=== PATIENT | male | born 1970 | race Hispanic/Latino ===

== ENCOUNTER 2024-09-04 02:21 | Observation (INO) | payer SELFPAY ==
[~2024-09-04] VITALS: Ht 170.2 cm; Wt 104.3 kg
--- NOTE | 2024-09-04 03:00 | NUR ---
PATIENT TO CT
[2024-09-04 03:09] LABS: BASOPHILS # (AUTO) 0.08 K/uL (0.00-0.20); BASOPHILS % (AUTO) 1.7 % (0.0-5.0); EOSINOPHILS # (AUTO) 0.14 K/uL (0.00-0.70); HEMATOCRIT 27.1 % (42-54); IMMATURE GRANULOCYTE ABSOLUTE 0.02 K/uL (0-1); LYMPHOCYTES # (AUTO) 1.5 K/uL (1.0-4.8); LYMPHOCYTES % (AUTO) 31.8 % (21.0-51.0); MEAN CORPUSCULAR HEMOGLOBIN 32.3 pg (27.0-33.0); MEAN CORPUSCULAR HGB CONC 31.7 g/dL (32.0-36.0); MEAN CORPUSCULAR VOLUME 101.9 fL (79-99); MONOCYTES # (AUTO) 0.4 K/uL (0.1-1.0); NEUTROPHILS # (AUTO) 2.6 K/uL (1.8-7.7); NEUTROPHILS % (AUTO) 55.1 % (40.0-77.0); PLATELET COUNT (AUTO) 200 K/uL (130-400); RED BLOOD CELL COUNT(AUTO) 2.66 MIL/uL (4.50-6.20); RED CELL DISTRIBUTION WIDTH 17.2 % (11.0-15.5); WHITE BLOOD COUNT (AUTO) 4.7 K/uL (4.8-10.8)
[2024-09-04 03:18] LABS: CREATININE 0.7 mg/dL (0.5-1.3); POTASSIUM 3.1 mmol/L (3.5-5.1)
[2024-09-04 03:20] LABS: APPEARANCE,URINE CLEAR (CLEAR); BILIRUBIN,URINE NEGATIVE (NEGATIVE); COLOR,URINE LIGHT-YELLOW (YELLOW); GLUCOSE, URINE (UA) NEGATIVE (NEGATIVE); KETONES,URINE NEGATIVE (NEGATIVE); LEUKOCYTE ESTERASE ,URINE NEGATIVE Leu/uL (NEGATIVE); NITRATE,URINE NEGATIVE (NEGATIVE); OCCULT BLOOD,URINE NEGATIVE (NEGATIVE); PROTEIN,URINE NEGATIVE (NEGATIVE); UROBILINOGEN,URINE 0.2 mg/dL (0.2-1.0)
[2024-09-04 03:21] LABS: ADD UA MICROSCOPIC NO
[2024-09-04 03:24] LABS: ALBUMIN 1.6 g/dL (3.5-5.0); BILIRUBIN,DIRECT 0.9 mg/dL (0.0-0.3); BILIRUBIN,TOTAL 1.3 mg/dL (0.2-1.0)
--- NOTE | 2024-09-04 03:37 | ERN ---
General Chief Complaint: Mechanical Fall Stated Complaint: UNWITNESSED FALL Time Seen by MD: 03:10 Source: police History of Present Illness Initial Comments This is a 54-year-old male who was found down by a passerby who called the police who then called photoengraving helper to bring the patient to the emergency room. Patient does admit to drinking but can not remember the events that led to him being found on the street. He states that he does have a problem with his liver that is all we know right now. Timing/Duration: unsure Severity: moderate Past Medical History Past Medical History: Liver Disease Past Surgical History: None Social History Social History: ETOH, Other (Unknown) ROS Dictation The patient stated that he does not have any medical problems. He would just like to sleep in the ED tonight and then walk home tomorrow morning where he stays with his mother. Nurses Notes Reviewed: Yes (Currently patient is soon to somnolent to do a complete review of systems.) Physical Exam General Appearance: (+) no apparent distress Orientation: (+) alert Orientation Comment Patient not clear where he is located he does know he is in an emergency room. Head/Face Trauma: No Eye: bilateral eye normal inspection, bilateral eye PERRL, bilateral eye EOMI Ear, Nose, Throat: (+) hearing grossly normal, (+) normal ENT inspection, (+) moist mucous membraine Neck: (+) normal inspection, (+) supple, (+) full range of motion, (+) no JVD Respiratory: (+) chest non-tender, (+) lungs clear, (+) well ventilated Heart: (+) regular Vascular: (+) no edema, (+) normal peripheral pulse, (+) no JVD, (+) abdominal aorta, (+) abnormal peripheral pulse, (+) carotid bruit, (+) edema, (+) JVD, (+) varicose vein, (+) other documentation Vascular Comment Patient has bilateral pretibial edema cause unknown at this point Gastrointestinal: (+) soft, (+) non-tender, (+) bowel sound present Extremities: (+) normal range of motion, (+) non-tender, (+) normal inspection Neurologic/Psychiatric: (+) normal speech, (+) no motor defecits Results Laboratory and Microbiology Lab and Micro Result Laboratory Tests Test 3/3/25 02:40 09/04/24 03:00 Urine Color LIGHT-YELLOW (YELLOW) Urine Appearance CLEAR (CLEAR) Urine pH 6.0 (5.0-8.0) Urine Specific [place] 1.004 (1.001-1.031) Urine Protein NEGATIVE mg/dL (NEGATIVE) Urine Glucose (UA) NEGATIVE mg/dL (NEGATIVE) Urine Ketones NEGATIVE mg/dL (NEGATIVE) Urine Occult Blood NEGATIVE (NEGATIVE) Urine Nitrate NEGATIVE (NEGATIVE) Urine Bilirubin NEGATIVE mg/dL (NEGATIVE) Urine Urobilinogen 0.2 mg/dL (0.2-1.0) Urine Leukocyte Esterase NEGATIVE Delia/uL White Blood Count 4.7 K/uL (4.8-10.8) L Red Blood Count 2.66 MIL/uL (4.50-6.20) L Hemoglobin 8.6 g/dL (14.0-18.0) L Hematocrit 27.1 % (42-54) L Mean Corpuscular Volume 101.9 fL (79-99) H Mean Corpuscular Hemoglobin 32.3 pg (27.0-33.0) Mean Corpuscular Hemoglobin Concent 31.7 g/dL (32.0-36.0) L Red Cell Distribution Width 17.2 % (11.0-15.5) H Platelet Count 200 K/uL (130-400) Mean Platelet Volume 8.9 fL (7.5-10.5) Immature Granulocyte % (Auto) 0.4 % (0-1) Neutrophils (%) (Auto) 55.1 % (40.0-77.0) Lymphocytes (%) (Auto) 31.8 % (21.0-51.0) Monocytes (%) (Auto) 8.0 % (3.0-13.0) Eosinophils (%) (Auto) 3.0 % (0.0-8.0) Basophils (%) (Auto) 1.7 % (0.0-5.0) Neutrophils # (Auto) 2.6 K/uL (1.8-7.7) Lymphocytes # (Auto) 1.5 K/uL (1.0-4.8) Monocytes # (Auto) 0.4 K/uL (0.1-1.0) Eosinophils # (Auto) 0.14 K/uL (0.00-0.70) Basophils # (Auto) 0.08 K/uL (0.00-0.20) Absolute Immature Granulocyte (auto 0.02 K/uL (0-1) Nucleated Red Blood Cells 0.0 % (0.0-0.19) Sodium Level 132 mmol/L (136-145) L Potassium Level 3.1 mmol/L (3.5-5.1) L Chloride Level 98 mmol/L (101-111) L Carbon Dioxide Level 26 mmol/L (21-32) Blood Urea Nitrogen 4 mg/dL (7-18) L Creatinine 0.7 mg/dL (0.5-1.3) Glomerular Filtration Rate Calc 111 mL/min (>90) Random Glucose 83 mg/dL (70-105) Total Calcium 7.9 mg/dL (8.5-10.1) L Total Bilirubin 1.3 mg/dL (0.2-1.0) H Direct Bilirubin 0.9 mg/dL (0.0-0.3) H Aspartate Amino Transf (AST/SGOT) 63 U/L (10-37) H Alanine Aminotransferase (ALT/SGPT) 24 U/L (12-78) Alkaline Phosphatase 105 U/L (50-136) Total Protein 9.0 g/dL (6.0-8.3) H Albumin 1.6 g/dL (3.5-5.0) L Labs Reviewed?: Yes EKG/XRAY/US/CT/MRI CT Scan Comment CT scans negative for any intracerebral hemorrhage masses or strokes. CT scan of the patient's neck is negative as well for fractures or dislocations. MDM Given the patient's decreased mental status and the fact that he has severe metabolic derangements and evidence of liver disease as well as a microcytic anemia from his alcohol abuse I asked him if he would like to stay in the hospital to let us fix all of those problems and he was agreeable. I have ca lled the hospitalist and they agreed to take him on their service. ED Course Orders Procedure Category Date Status Time Cbc With Differential LAB 09/04/24 Complete 02:53 Basic Metabolic Panel LAB 09/04/24 Complete 02:53 Hepatic Function Panel LAB 09/04/24 Complete 02:53 Ct Cervical Spine W/O CT 09/04/24 Taken Contrast 02:53 Ct Head/Brain W/O CT 09/04/24 Taken Contrast 02:53 Urinalysis Profile LAB 09/04/24 Complete 02:54 Drug Screen Urine LAB 09/04/24 Logged 03:41 Alcohol, Blood LAB 09/04/24 Logged 03:41 Vital Signs Date Time Temp Pulse Resp B/P (MAP) Pulse Ox O2 Delivery O2 Flow Rate FiO2 09/04/24 02:30 97.0 105 17 128/92 93 Room Air 0 09/04/24 02:22 97.0 105 17 128/92 93 Room Air* 0 21 DX & DISP Disposition: Inpatient Departure Impression: Primary Impression: Alcohol abuse Additional Impressions: Liver disease due to alcohol, Macrocytic anemia Condition: Stable Referrals: SELF,REFERRAL (PCP) MIESHA BYERS MD Sep 04, 2024 03:37
[2024-09-04 04:22] LABS: AMPHET/METH SCREEN,URINE NEGATIVE (NEGATIVE); BARBITURATE SCREEN, URINE NEGATIVE (NEGATIVE); BENZODIAZEPINES SCREEN,URINE NEGATIVE (NEGATIVE); CANNABINOID SCREEN,URINE POSITIVE (NEGATIVE); COCAINE SCREEN,URINE POSITIVE (NEGATIVE); OPIATE SCREEN,URINE NEGATIVE (NEGATIVE); PHENCYCLIDINE SCREEN,URINE NEGATIVE (NEGATIVE)
[2024-09-04] MEDS ORDERED: ondanSETRON 4MG INJ IVP PRN (04:30)
[2024-09-04] MEDS ORDERED: acetaMINOPHEN 650 MG SUPPOSITORY RC PRN (04:30)
[2024-09-04] MEDS ORDERED: LACTULOSE 20 GM/30 ML UDCUP PO PRN (04:30)
[2024-09-04] MEDS ORDERED: PoTASSium chl 10% ELIXIR 20MEQ 20 MEQ/15 ML UDCUP PO PRN (04:30)
[2024-09-04] MEDS ORDERED: hydrALAZine 20MG/ML VIAL IV PRN (04:30)
[2024-09-04] MEDS ORDERED: DEXTROSE 50%-WATER 50 ML DISP.SYRIN IV PRN (04:30)
[2024-09-04] MEDS ORDERED: doCUSate SODIUM 100 MG CAP PO PRN (04:30)
[2024-09-04] MEDS ORDERED: TEMAZepam 15 MG CAPSULE PO PRN (04:30)
[2024-09-04] MEDS ORDERED: MAGNESIUM 2GM PREMIX 50ML 50 ML IV PRN (04:30)
[2024-09-04] MEDS ORDERED: GLUCAGON 1MG KIT 1 MG ML IM PRN (04:30)
[2024-09-04] MEDS ORDERED: acetaMINOPHEN 325 MG TAB PO PRN (04:30)
[2024-09-04] MEDS ORDERED: PoTASSium chloRIDE 20MEQ/100ML 100 ML IV PRN (04:30)
[2024-09-04] MEDS ORDERED: PoTASSium chloRIDE 20MEQ ER 20 MEQ ERTAB PO PRN (04:30)
--- NOTE | 2024-09-04 04:30 | HP ---
[facility] HISTORY AND PHYSICAL Date of Service: Sep 04, 2024 Time of Service: 04:30 Attending/supervising physicians: Dr. Maria and Dr. Nicole Castrejon HISTORY OF PRESENT ILLNESS: Mr. Ortiz is a 54-year-old male with hx of liver problems who was found on the ground by bystanders who called the police who then called brush maker machine to bring the patient to the emergency room. Patient admitted to drinking but can not remember the events that led to him being found on the street. The patient denied chest pain, shortness of breath, any injury, any other pain, problem or concern. ED physician request patient be admitted with the diagnosis of alcohol abuse, liver disease due alcohol, Microcytic anemia. The patient was found to be positive for cocaine, marijuana, and serum alcohol level was 310. Remarkable lab results: Hemoglobin 8.6, hematocrit 27.1, RBCs 2.66, sodium 132, potassium 3.1, chloride 98, total calcium 7.9, total bilirubin 1.3, direct bilirubin 1.9, AST 63, total protein 9.0, albumin 1.6. I assessed the patient at bedside. Patient was awake, alert, in no distress. The patient's speech is clear and no neuro deficits noted. The patient was sleeping but wakes up to voice. Patient reports that he is hungry. Denies any chest pain, shortness of breath, dizziness, any physical injury, any other pain, problem or concern. I informed the patient of labs, diagnostics, and plan of care. The patient verbalized understanding and is in agreement with the plan. Plan and assessment are listed below. REVIEW OF SYSTEMS 12-point ROS reviewed with patient. All pertinent positives mentioned above. Otherwise negative, noncontributory, non-pertinent. PAST MEDICAL HISTORY: As mentioned above. PAST SURGICAL HISTORY: None PAST SOCIAL HISTORY: + ETOH FAMILY HISTORY: Noncontributory Coded Allergies: No Known Drug Allergies (Unverified Allergy, Unknown, 09/04/24) PHYSICAL EXAM GENERAL APPEARANCE: The patient is awake, alert, and oriented, in no acute cardiopulmonary distress. NEUROLOGICAL: Cranial nerves II-XII grossly intact. Motor is 5/5 in bilateral upper and lower extremities proximal to distal. No sensory deficits. HEENT: Face is symmetric. Pupils are equal and reactive. Extraocular movements are intact. NECK: Supple. No JVD. No thyromegaly. No submental, submandibular, pre- /postauricular, occipital or supraclavicular lymphadenopathy. CHEST: Normal chest expansion. No Telemetry. LUNGS: Absence of any rales, rhonchi or any wheezing. CARDIOVASCULAR: Regular. S1 and S2 normal. No appreciable rubs, murmurs or gallops. ABDOMEN: Soft, nontender, and nondistended. There is no rebound, voluntary guarding, or rigidity. : Deferred. No [place]. EXTREMITIES: Non-edematous and not cyanotic. No clubbing. Good capillary refill. SKIN: No skin breakdown. Vital Sign (Last 24 Hours) 09/04/24 09/04/24 02:22 02:30 Temp 97.0 Pulse 105 Resp 17 B/P (MAP) 128/92 Pulse Ox 93 O2 Delivery Room Air O2 Flow Rate 0 FiO2 21 LABS: Laboratory: Test 09/04/24 03:00 09/04/24 02:40 Range/Units White Blood Count 4.7 L 4.8-10.8 K/uL Red Blood Count 2.66 L 4.50-6.20 MIL/uL Hemoglobin 8.6 L 14.0-18.0 g/dL Hematocrit 27.1 L 42-54 % Mean Corpuscular Volume 101.9 H 79-99 fL Mean Corpuscular Hemoglobin 32.3 27.0-33.0 pg Mean Corpuscular Hemoglobin Concent 31.7 L 32.0-36.0 g/dL Red Cell Distribution Width 17.2 H 11.0-15.5 % Platelet Count 200 130-400 K/uL Mean Platelet Volume 8.9 7.5-10.5 fL Immature Granulocyte % (Auto) 0.4 0-1 % Neutrophils (%) (Auto) 55.1 40.0-77.0 % Lymphocytes (%) (Auto) 31.8 21.0-51.0 % Monocytes (%) (Auto) 8.0 3.0-13.0 % Eosinophils (%) (Auto) 3.0 0.0-8.0 % Basophils (%) (Auto) 1.7 0.0-5.0 % Neutrophils # (Auto) 2.6 1.8-7.7 K/uL Lymphocytes # (Auto) 1.5 1.0-4.8 K/uL Monocytes # (Auto) 0.4 0.1-1.0 K/uL Eosinophils # (Auto) 0.14 0.00-0.70 K/uL Basophils # (Auto) 0.08 0.00-0.20 K/uL Absolute Immature Granulocyte (auto 0.02 0-1 K/uL Nucleated Red Blood Cells 0.0 0.0-0.19 % Sodium Level 132 L 136-145 mmol/L Potassium Level 3.1 L 3.5-5.1 mmol/L Chloride Level 98 L 101-111 mmol/L Carbon Dioxide Level 26 21-32 mmol/L Blood Urea Nitrogen 4 L 7-18 mg/dL Creatinine 0.7 0.5-1.3 mg/dL Glomerular Filtration Rate Calc 111 >90 mL/min Random Glucose 83 70-105 mg/dL Total Calcium 7.9 L 8.5-10.1 mg/dL Total Bilirubin 1.3 H 0.2-1.0 mg/dL Direct Bilirubin 0.9 H 0.0-0.3 mg/dL Aspartate Amino Transf (AST/SGOT) 63 H 10-37 U/L Alanine Aminotransferase (ALT/SGPT) 24 12-78 U/L Alkaline Phosphatase 105 50-136 U/L Total Protein 9.0 H 6.0-8.3 g/dL Albumin 1.6 L 3.5-5.0 g/dL Serum Alcohol 310 H 0-10 mg/dL Urine Color LIGHT-YELLOW YELLOW Urine Appearance CLEAR CLEAR Urine pH 6.0 5.0-8.0 Urine Specific [place] 1.004 1.001-1.031 Urine Protein NEGATIVE NEGATIVE mg/dL Urine Glucose (UA) NEGATIVE NEGATIVE mg/dL Urine Ketones NEGATIVE NEGATIVE mg/dL Urine Occult Blood NEGATIVE NEGATIVE Urine Nitrate NEGATIVE NEGATIVE Urine Bilirubin NEGATIVE NEGATIVE mg/dL Urine Urobilinogen 0.2 0.2-1.0 mg/dL Urine Leukocyte Esterase NEGATIVE NEGATIVE Delia/uL Urine Opiates Screen NEGATIVE NEGATIVE Urine Barbiturates Screen NEGATIVE NEGATIVE Urine Phencyclidine Screen NEGATIVE NEGATIVE Urine Amphetamines Screen NEGATIVE NEGATIVE Urine Benzodiazepines Screen NEGATIVE NEGATIVE Urine Cocaine Screen POSITIVE H NEGATIVE Urine Marijuana (THC) Screen POSITIVE H NEGATIVE Current Medications Medications (Trade) Dose Ordered Sig/Rudolph Route PRN Reason Start Time Stop Time Status Last Admin Dose Admin Acetaminophen (TYLenol 325MG TAB) 650 mg Q6H PRN PO FEVER/MILD PAIN LEVEL 1-3 09/04/24 04:30 10/04/24 04:29 UNV Acetaminophen (TYLenol 650MG SUPPOSITORY) 650 mg Q6H PRN RC FEVER / MILD PAIN 1-3 IF NPO 09/04/24 04:30 10/04/24 04:29 UNV Dextrose (D50w) 50 ml AD PRN IV HYPOGLYCEMIA PROTOCOL 09/04/24 04:30 10/04/24 04:29 UNV Docusate Sodium (COLace 100MG CAP) 100 mg BID PRN PO c 09/04/24 04:30 10/04/24 04:29 UNV Glucagon (Glucagon 1mg Kit) 1 mg AD PRN IM HYPOGLYCEMIA PROTOCOL 09/04/24 04:30 10/04/24 04:29 UNV Hydralazine HCl (APRESOLine 20MG INJ) 10 mg Q2H PRN IV SBP GREATER THAN 160 09/04/24 04:30 10/04/24 04:29 UNV Insulin Human Regular (humuLIN R 100 UNIT/ML 3ML) INSULIN SLIDING SCAL... ACHS SQ 09/04/24 07:30 10/04/24 07:29 UNV Lactulose (Constulose 20gm/ 30ml Udcup) 20 gm Q6H PRN PO CONSTIPATION 09/04/24 04:30 10/04/24 04:29 UNV Magnesium Sulfate 50 ml @ 0 mls/hr PROTOCOL PRN IV MAGNESIUM PROTOCOL 09/04/24 04:30 10/04/24 04:29 UNV Multivitamins/ Minerals 10 ml/ Folic Acid 1 mg/ Thiamine HCl 100 mg/Sodium Chloride 1,010 ml @ 125 mls/hr DAILY IV 09/04/24 04:30 10/04/24 04:29 UNV Ondansetron HCl (zoFRAN 4MG INJ) 4 mg Q6H PRN IVP NAUSEA/VOMITING 09/04/24 04:30 10/04/24 04:29 UNV Potassium Chloride 100 ml @ 100 mls/hr AD PRN IV POTASSIUM PROTOCOL 09/04/24 04:30 10/04/24 04:29 UNV Potassium Chloride (K-Dur/Klor-Con 20meq) 20 meq AD PRN PO POTASSIUM PROTOCOL 09/04/24 04:30 10/04/24 04:29 UNV Potassium Chloride (KCl 10% Elixir 20meq/15ml) 20 meq AD PRN PO POTASSIUM PROTOCOL 09/04/24 04:30 10/04/24 04:29 UNV Temazepam (restORIL 15 MG CAP) 15 mg HS PRN PO INSOMNIA/SLEEP 09/04/24 04:30 10/04/24 04:29 UNV DIAGNOSTICS / RADIOLOGY: [ ] ASSESSMENT: Alcohol intoxication/ addiction, POA s/p fall injury Liver disease Substance abuse (positive cocaine, marijuana, and ETOH) Leukopenia Anemia chronic disease Electrolyte derangement (hyponatremia, hypokalemia, hypochloremia, hypocalcemia) Transaminitis Hyperammonuria Hypoalbuminemia/Malnutritional Hyperproteinemia PLAN: Admit to medical floor with telemetry monitoring. -Education of Alcohol and illicit drug cessation. -NS 1 L bolus now then -Start Banana bag IV after NS bolus has complete. -Obtain vitamin B12 and folic acid level. -Lactulose 20 g p.o. x1 dose. -CIWA protocol. -PRN medications for: Pain management, fever, hypertension, N/V, constipation. -Glucometer checks AC & HS needed with insulin regular sliding scale coverage as needed. -Blood pressure checks every 4 hours and as needed. -Reconcile home medications once available. - Monitor renal and liver function. -Monitor electrolytes and replace PRN -AM labs: CBC, BMP, mag, phos, TSH, A1C. -GI and DVT prophylaxis -Further orders per hospitalization course. ADVANCED CARE PLANNING 1. Which of the following were discussed? Hospice Care - No Therapeutic options - Yes Advance Directives - Yes Other discussions - 2. Discussed with who? Patient 3. Voluntary nature of this service was explained to the patient? Yes 4. Amount of time spent - __ over 35 minute 5. Reviewed by Physician? (if this service was performed by NPP) Yes ATTESTATION BY PHYSICIAN I have seen and examined the patient. I reviewed the documentation, medical decision making, and treatment plan as noted by the advanced practice provider above. I agree with the findings and plan of care. Further orders per hospitalization course. ARELI GAONA BOOK PUBLISHER Sep 04, 2024 04:30
[2024-09-04] MEDS: M.V.I. IV [ADULT] 10 ML, FOLic ACID 5 MG/ML VIAL 1 MG, THIAMINE HCL 100 MG in 0.9%NACL ... IV SCH (04:38)
[2024-09-04] MEDS: 0.9%NACL 1000ML 1,000 ML IV ONE (04:38)
[2024-09-04] MEDS: PoTASSium chloRIDE 20MEQ ER 20 MEQ ERTAB PO ONE (04:38)
[2024-09-04 05:25] LABS: HEMOGLOBIN A1C 4.6 % (4.0-6.0)
[2024-09-04 05:39] LABS: MAGNESIUM 1.8 mg/dL (1.80-2.40); THYROID STIMULATING HORMONE 1.6 uIU/mL (0.36-3.74)
[2024-09-04] MEDS: INSULIN humuLIN R 100 UNIT/ML 3ML SQ SCH (07:30)
--- NOTE | 2024-09-04 08:23 | HMCIMG ---
CT HEAD/BRAIN W/O CONTRAST HISTORY: Unwitnessed fall COMPARISON: None TECHNIQUE: Multiple sequential axial images of the head were obtained from the base of the skull through vertex. Patient was not given contrast through intravenous route. FINDINGS: The ventricles and extraventricular CSF spaces are dilated consistent with cerebral atrophy. Nonspecific white matter changes seen. There is no midline shift, mass effect or herniation. No acute intracranial bleed is seen. Visualized portion of the paranasal sinuses are grossly within normal limits. IMPRESSION: 1. No acute intracranial bleed is seen. 2. Atrophy with white matter changes. CT was performed with one or more following dose reduction techniques: automated exposure control, adjustment of the mA and kv according to patient's size, or use of a iterative reconstruction technique.
--- NOTE | 2024-09-04 08:31 | HMCIMG ---
CT CERVICAL SPINE W/O CONTRAST HISTORY: Unwitnessed fall COMPARISON: None TECHNIQUE: Multiple sequential axial images of the cervical spine were obtained including post processing sagittal and coronal reconstruction images. Patient was not given contrast through intravenous route. FINDINGS: There is straightening of normal lordotic cervical curvature which may be related to muscle spasm or positioning. There is no loss of vertebral height. Evaluation for disc and cord pathology is limited with CT study. No evidence of fracture or dislocation is seen. There are degenerative changes with cervical spine spondylosis. IMPRESSION: 1. No fracture is seen. CT was performed with one or more following dose reduction techniques: automated exposure control, adjustment of the mA and kv according to patient's size, or use of a iterative reconstruction technique.
[2024-09-04] MEDS ORDERED: LACTULOSE 20 GM/30 ML UDCUP PO ONE (11:00)
[2024-09-04 11:20] LABS: HEMATOCRIT 26.6 % (42-54); MEAN CORPUSCULAR HEMOGLOBIN 32.7 pg (27.0-33.0); MEAN CORPUSCULAR VOLUME 102.3 fL (79-99); RED BLOOD CELL COUNT(AUTO) 2.6 MIL/uL (4.50-6.20); RED CELL DISTRIBUTION WIDTH 17.3 % (11.0-15.5); WHITE BLOOD COUNT (AUTO) 3.6 K/uL (4.8-10.8)
[2024-09-04 11:34] LABS: INR 1.46 (0.85-1.15); PROTHROMBIN TIME 14.9 SEC (9.6-11.6)
[2024-09-04 11:35] LABS: PARTIAL THROMBOPLASTIN TIME 39.1 SEC (26.3-35.5)
--- NOTE | 2024-09-04 11:57 | NUR ---
PT WANTS TO LEAVE AND PT REINFORCE ABOUT BLOOD ALCOHOL LEVEL OVER THE LIMIT AND IF HE WANTS TO LEAVE AMA HE NEEDS FAMILY OR FRIEND TO RELEASE AND MADE RESPONSIBLE FOR HIM. PT STATES HE DOES NOT HAVE ANYONE TO PICK HIM UP. PT MADE AWARE IF LEAVES THE UNIT THAT WE ARE TO CALL ERICK KELLY. PT VOICED UNDERSTANDING. PT IS GETTING DRESSED.
[2024-09-04 12:03] LABS: BILIRUBIN,TOTAL 1.1 mg/dL (0.2-1.0); TOTAL PROTEIN, SERUM 8.1 g/dL (6.0-8.3)
[2024-09-04 12:04] VITALS: BP 110/59; PULSE 99; RESP 18; TEMP 98; O2SAT 99
[2024-09-04 12:13] LABS: ALBUMIN 1.5 g/dL (3.5-5.0); CREATININE 0.6 mg/dL (0.5-1.3); POTASSIUM 3.1 mmol/L (3.5-5.1)
--- NOTE | 2024-09-04 15:16 | DS ---
Discharge Summary Hospital Course Summary: Mr. Ochoa is a 54-year-old male with hx of liver problems who was found on the ground by bystanders who called the police who then called tram driver to bring the patient to the emergency room. Patient admitted to drinking but can not remember the events that led to him being found on the street. The patient d enied chest pain, shortness of breath, any injury, any other pain, problem or concern. ED physician request patient be admitted with the diagnosis of alcohol abuse, liver disease due alcohol, Microcytic anemia. The patient was found to be positive for cocaine, marijuana, and serum alcohol level was 310. Remarkable lab results: Hemoglobin 8.6, hematocrit 27.1, RBCs 2.66, sodium 132, potassium 3.1, chloride 98, total calcium 7.9, total bilirubin 1.3, direct bilirubin 1.9, AST 63, total protein 9.0, albumin 1.6. On reassessing the patient, he is not responding to the questions properly. Patient left AMA from the ED room 10 Procedure(s): PATIENT: THOR OCHOA MR#: [id number] : 1970 SEX: M AGE: 54 LOCATION: [facility] ORDER 3 STATUS: ADM IN REPORT#: [id number] SERVICE 2 REASON: UNWITNESSED FALL ORDERING PHYSICIAN: MIESHA BYERS MD PROCEDURE: C SPIN WO - CT CERVICAL SPINE W/O CONTRAST CT CERVICAL SPINE W/O CONTRAST HISTORY: Unwitnessed fall COMPARISON: None TECHNIQUE: Multiple sequential axial images of the cervical spine were obtained including post processing sagittal and coronal reconstruction images. Patient was not given contrast through intravenous route. FINDINGS: There is straightening of normal lordotic cervical curvature which may be related to muscle spasm or positioning. There is no loss of vertebral height. Evaluation for disc and cord pathology is limited with CT study. No evidence of fracture or dislocation is seen. There are degenerative changes with cervical spine spondylosis. IMPRESSION: 1. No fracture is seen. CT was performed with one or more following dose reduction techniques: automated exposure control, adjustment of the mA and kv according to patient's size, or use of a iterative reconstruction technique. DICTATED BY: DWAYNE HAN MD DATE: 09/04/24827 ELECTRONICALLY SIGNED BY: DWAYNE HAN MD DATE: 09/04/24830 PATIENT: THOR OCHOA MR#: [id number] : 1970 SEX: M AGE: 54 LOCATION: [facility] ORDER 3 STATUS: ADM IN [facility] REPORT#: [id number] SERVICE 2 REASON: UNWITNESSED FALL ORDERING PHYSICIAN: MIESHA BYERS MD PROCEDURE: HEAD WO - CT HEAD/BRAIN W/O CONTRAST CT HEAD/BRAIN W/O CONTRAST HISTORY: Unwitnessed fall COMPARISON: None TECHNIQUE: Multiple sequential axial images of the head were obtained from the base of the skull through vertex. Patient was not given contrast through intravenous route. FINDINGS: The ventricles and extraventricular CSF spaces are dilated consistent with cerebral atrophy. Nonspecific white matter changes seen. There is no midline shift, mass effect or herniation. No acute intracranial bleed is seen. Visualized portion of the paranasal sinuses are grossly within normal limits. IMPRESSION: 1. No acute intracranial bleed is seen. 2. Atrophy with white matter changes. CT was performed with one or more following dose reduction techniques: automated exposure control, adjustment of the mA and kv according to patient's size, or use of a iterative reconstruction technique. DICTATED BY: DWAYNE HAN MD DATE: 09/04/24814 ELECTRONICALLY SIGNED BY: DWAYNE HAN MD DATE: 09/04/24822 Assessment/Plan: ASSESSMENT: Alcohol intoxication/ addiction, POA s/p fall injury Liver disease Substance abuse (positive cocaine, marijuana, and ETOH) Leukopenia Anemia chronic disease Electrolyte derangement (hyponatremia, hypokalemia, hypochloremia, hypocalcemia) Transaminitis Hyperammonuria Hypoalbuminemia/Malnutritional Hyperproteinemia Macrocytic Anemia POA Time spent arranging discharge: 1-30 minutes ATTESTATION BY PHYSICIAN I have seen and examined the patient. I reviewed the documentation, medical decision making, and treatment plan as noted by the Resident provider above. I agree with the findings and plan of care. Miguel Castrejon MD, KEERTI K MD Sep 04, 2024 15:16
== END 2024-09-04 12:04 | disposition left against medical advice (07) ==
LOC: EDH 02:21 → UNDOADMOB 02:22 → EDHIP 02:22
PROVIDERS: ADMIT Internal Medicine Sleep Medicine; ATTEND Internal Medicine Sleep Medicine
DX: F10.129 Alcohol abuse with intoxication, unspecified (principal); K76.9 Liver disease, unspecified; D72.819 Decreased white blood cell count, unspecified; D50.9 Iron deficiency anemia, unspecified; E83.51 Hypocalcemia; E87.1 Hypo-osmolality and hyponatremia; E87.6 Hypokalemia; D63.8 Anemia in other chronic diseases classified elsewhere; R74.01 Elevation of levels of liver transaminase levels; E87.8 Other disorders of electrolyte and fluid balance, not elsewhere classified; E88.09 Other disorders of plasma-protein metabolism, not elsewhere classified; F14.10 Cocaine abuse, uncomplicated; F12.10 Cannabis abuse, uncomplicated; I10 Essential (primary) hypertension; K70.9 Alcoholic liver disease, unspecified; Z98.890 Other specified postprocedural states; Z79.899 Other long term (current) drug therapy; Y90.8 Blood alcohol level of 240 mg/100 ml or more
CPT/HCPCS: 96374; 99284; 83036; 84443; 83735; 84484 ×2; 80053; 83880; 80305; 82140; 85025; 85027; 85610; 85730; 82948; 82607; 82746; 81003; 36415; 70450; 72125; G0378 ×8; J7030 ×2; J3411; J3490; 80048; 80076

== ENCOUNTER 2024-09-19 21:22 | Emergency (ER) | payer SELFPAY ==
[~2024-09-19] VITALS: Ht 172.7 cm; Wt 81.6 kg
[2024-09-19 21:55] VITALS: BP 122/64; PULSE 80; RESP 18; TEMP 98.1; O2SAT 92
--- NOTE | 2024-09-19 21:56 | NUR ---
PATIENT DOES NOT WANT TO BE SEEN, STATES HIS SON IS HERE TO PICK HIM UP. PATIENT SIGNED AMA FORM. EMS CREW 704 AT BEDSIDE AND WITNESSED PATIENT SIGNING AMA PAPERWORK.
== END 2024-09-19 22:02 | disposition left against medical advice (07) ==
LOC: EDH 21:22
DX: M79.89 Other specified soft tissue disorders (principal); Z53.21 Procedure and treatment not carried out due to patient leaving prior to being seen by health care provider